=== PATIENT | male | born 1955 | race Caucasian/White ===

== ENCOUNTER 2018-05-18 03:59 | Inpatient (IN) | payer OTHER, SELFPAY ==
[~2018-05-18] VITALS: Ht 177.8 cm; Wt 120.0 kg
[2018-05-18] MEDS ORDERED: ASPI-515 PO (04:13)
[2018-05-18] MEDS ORDERED: LEVO112T4 PO (04:13)
[2018-05-18] MEDS ORDERED: NTG (04:13)
[2018-05-18] MEDS ORDERED: ATOR20TA PO (04:13)
[2018-05-18] MEDS ORDERED: MELO7.5T31 PO (04:19)
[2018-05-18] MEDS ORDERED: TAMS-11 PO (04:19)
[2018-05-18] MEDS ORDERED: MORPHINE SULFATE 4 MG/ML, 1ML ONE (04:25)
[2018-05-18] MEDS ORDERED: ASPIRIN 81 MG TABLET CHEW ONE (04:25)
[2018-05-18] MEDS ORDERED: MORPHINE SULFATE 4 MG/ML, 1ML IVPush PRN (04:30)
[2018-05-18] MEDS ORDERED: ASPIRIN 81 MG TABLET CHEW PO ONE (04:30)
[2018-05-18] MEDS ORDERED: NITROGLYCERIN SINGLE TAB 0.4 MG SL PRN (04:30)
[2018-05-18 04:44] LABS: BASOPHILS # (AUTO) 0.03 x10^3/uL (0-0.1); BASOPHILS % (AUTO) 1 % (0-1); EOSINOPHILS # (AUTO) 0.29 x10^3/uL (0-0.4); EOSINOPHILS % (AUTO) 5 % (1-7); LYMPHOCYTES # (AUTO) 1.65 x10^3/uL (1-3.4); LYMPHOCYTES % (AUTO) 31 % (22-44); MD NO; MEAN CORPUSCULAR HEMOGLOBIN 30.2 pg (27.5-34.5); MEAN CORPUSCULAR HGB CONC 33.8 g/dL (33.2-36.2); MEAN CORPUSCULAR VOLUME 89.5 fL (81-97); MEAN PLATELET VOLUME 7.7 fL (7.4-10.4); MONOCYTES # (AUTO) 0.68 x10^3/uL (0.2-0.8); MONOCYTES % (AUTO) 13 % (2-9); NEUTROPHILS # (AUTO) 2.71 x10^3/uL (1.8-6.8); NEUTROPHILS % (AUTO) 51 % (42-75); PLATELET COUNT 186 x10^3/uL (130-400); RED CELL DISTRIBUTION WIDTH 14.9 % (9.4-14.8)
[2018-05-18 04:54] LABS: ALBUMIN 3.7 g/dL (3.4-5.0); ANION GAP 9 mmol/L (5-15); CALCIUM 8.4 mg/dL (8.5-10.1); CHLORIDE 107 mmol/L (98-107); CREATININE 1.12 mg/dL (0.7-1.3)
[2018-05-18 04:58] LABS: TROPONIN I < 0.015 ng/mL (0.000-0.045)
[2018-05-18] MEDS ORDERED: ONDANSETRON 2MG/ML, 2ML IVPush PRN (07:30)
[2018-05-18] MEDS ORDERED: morphine SULFATE 10 MG/ML, 1ML IVPush PRN (07:30)
[2018-05-18] MEDS ORDERED: DOCUSATE 100 MG CAPSULE PO PRN (07:30)
[2018-05-18] MEDS ORDERED: ACETAMINOPHEN 325 MG TABLET PO PRN (07:30)
[2018-05-18] MEDS ORDERED: POLYETHYLENE GLYCOL 17 GM PACKET PO PRN (07:30)
[2018-05-18] MEDS ORDERED: ENALAPRILAT 1.25 MG/ML, 2ML IVPush PRN (07:30)
[2018-05-18] MEDS ORDERED: BISACODYL 10 MG SUPP PR PRN (07:30)
[2018-05-18] MEDS ORDERED: LEVOTHYROXINE 112 MCG TABLET PO SCH (09:00)
[2018-05-18] MEDS ORDERED: SODIUM CHLORIDE FLUSH 10ML SYR IVF SCH (09:00)
[2018-05-18] MEDS ORDERED: TAMSULOSIN 0.4 MG CAP.ER.24H PO SCH (09:00)
[2018-05-18] MEDS ORDERED: MELOXICAM 15 MG TABLET PO SCH (09:00)
[2018-05-18] MEDS ORDERED: ASPIRIN 81 MG TABLET EC PO SCH (09:00)
[2018-05-18 09:17] VITALS: BP 133/82
[2018-05-18 10:43] LABS: TROPONIN I < 0.015 ng/mL (0.000-0.045)
[2018-05-18 10:50] LABS: INTERNATIONAL NORMALIZED RATIO 1.05 (0.93-1.1); PROTHROMBIN TIME 11.1 Seconds (9.6-11.5)
[2018-05-18 13:08] VITALS: BP 131/71
[2018-05-18 16:40] LABS: TROPONIN I < 0.015 ng/mL (0.000-0.045)
[2018-05-18] MEDS ORDERED: NITR0.4T SL (17:07)
[2018-05-18] MEDS ORDERED: ATORVASTATIN 20 MG TABLET PO SCH (21:00)
== END 2018-05-18 20:15 | disposition home or self-care (01) | DRG 313 ==
LOC: ED 05:58 → EDIP 06:00 → 5SO 06:20
PROVIDERS: ADMIT Internal Medicine; ATTEND Internal Medicine
DX: R07.89 Other chest pain (principal); Z66 Do not resuscitate; N40.0 Benign prostatic hyperplasia without lower urinary tract symptoms; I25.10 Atherosclerotic heart disease of native coronary artery without angina pectoris; E78.5 Hyperlipidemia, unspecified; I11.9 Hypertensive heart disease without heart failure; I49.1 Atrial premature depolarization; E66.3 Overweight; E03.9 Hypothyroidism, unspecified; Z85.038 Personal history of other malignant neoplasm of large intestine; Z85.51 Personal history of malignant neoplasm of bladder; Z87.891 Personal history of nicotine dependence; Z95.5 Presence of coronary angioplasty implant and graft; Z79.899 Other long term (current) drug therapy; Z90.49 Acquired absence of other specified parts of digestive tract; Z95.818 Presence of other cardiac implants and grafts; Z68.38 Body mass index [BMI] 38.0-38.9, adult
CPT/HCPCS: 36415; 71045; 78452; 80048; 82040; 83880; 84484; 85025; 85610; 93005; 93017; 96374; 99285; G0378; A9502; C9898